=== PATIENT | male | born 1985 | race African-American/Black ===

== ENCOUNTER 2017-03-22 15:34 | Emergency (ER) | payer SELFPAY ==
[2017-03-22] MEDS ORDERED: Proparacaine 0.5% Ophth Soln 15 ML Bottle ONE (16:07)
[2017-03-22] MEDS ORDERED: Proparacaine 0.5% Ophth Soln 15 ML Bottle EYERT ONE (16:14)
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
[2017-03-22 16:36] VITALS: BP 140/68
== END 2017-03-22 16:30 | disposition home or self-care (01) ==
LOC: MW.ED 15:34
DX: S05.01XA Injury of conjunctiva and corneal abrasion without foreign body, right eye, initial encounter (principal); X58.XXXA Exposure to other specified factors, initial encounter
CPT/HCPCS: 99283

== ENCOUNTER 2017-09-27 15:53 | Emergency (ER) | payer SELFPAY ==
[2017-09-27 16:00] VITALS: BP 143/83
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
[2017-09-27 16:56] LABS: CHLORIDE,CL 105 mmol/L (98-110); SODIUM,NA 140 mmol/L (136-146)
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
== END 2017-09-27 19:13 | disposition home or self-care (01) ==
LOC: MW.ED 15:53
DX: S01.331A Puncture wound without foreign body of right ear, initial encounter (principal); S20.219A Contusion of unspecified front wall of thorax, initial encounter; V43.52XA Car driver injured in collision with other type car in traffic accident, initial encounter
CPT/HCPCS: 36415; 71010; 71010-26; 72040; 72040-26; 72170; 72170-26; 80053; 80305; 81001; 84484; 85025; 93005; 99285; 99285-25

== ENCOUNTER 2019-09-27 20:05 | Emergency (ER) | payer SELFPAY ==
[2019-09-27 20:21] VITALS: BP 111/65; PULSE 78
--- NOTE | 2019-09-27 20:22 | EDM.PDOC ---
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 He's had no fever or chills or other complaints and is yet secure a dental appointment. Review of systems: As per history of present illness and below otherwise all systems reviewed and negative. Past medical history: As per history of present illness and as reviewed below otherwise noncontributory. Surgical history: As per history of present illness and as reviewed below otherwise noncontributory. Social history: No reported history of drug or alcohol abuse. Family history: As per history of present illness and as reviewed below otherwise noncontributory. Physical exam: HEENT: Atraumatic, normocephalic, pupils reactive, negative for conjunctival pallor or scleral icterus, mucous membranes moist, throat clear, neck supple, nontender, trachea midline. Patient has some tenderness in the region of the right lower molar with minimal gingival edema. Lungs: Clear to auscultation, breath sounds equal bilaterally, chest nontender. Heart: S1S2, regular, negative for clicks, rubs, or JVD. Abdomen: Soft, nondistended, nontender. Negative for masses or hepatosplenomegaly. Negative for costovertebral tenderness. Pelvis: Stable nontender. Genitourinary: Deferred. Rectal: Deferred. Extremities: Atraumatic, negative for cords or calf pain. Neurovascular unremarkable. Right shoulder is no gross deformity neurovascular exam CMS is unremarkable there's no point tenderness Neuro: Awake, alert, oriented. Cranial nerves II through XII unremarkable. Cerebellum unremarkable. Motor and sensory unremarkable throughout. Exam nonfocal. Diagnostics: Deferred Therapeutics: None Impression: #1 right shoulder pain probable overuse syndrome #2 dentalgia rule out dental abscess Definitive disposition and diagnosis as appropriate pending reevaluation and review of above. - Related Data Allergies Allergy/AdvReac Type Severity Reaction Status Date / Time No Known Allergies Allergy Verified 09/27/17 15:57 Home Meds: Home Meds . [No Known Home Meds] 03/22/17 [History] Past Medical History - Past Health History Medical/Surgical History: Denies Medical/Surgical History Social & Family History - Family History Family Medical History: Noncontributory - Caffeine Use Caffeine Use: Reports: None Review of Systems - Review of Systems Review Of Systems: Comprehensive ROS is negative, except as noted in HPI. ED EXAM, GENERAL - Physical Exam Exam: See Below (See dictation) Departure - Departure Time of Disposition: 20:20 Disposition: Home, Self-Care 01 Condition: Good Clinical Impression: Shoulder pain, Dentalgia, Dental abscess - Discharge Information Referrals: PCP,None [Primary Care Provider] - Additional Instructions: The following information is given to patients seen in the emergency department who are being discharged to home. This information is to outline your options for follow-up care. We provide all patients seen in our emergency department with a follow-up referral. The need for follow-up, as well as the timing and circumstances, are variable depending upon the specifics of your emergency department visit. If you don't have a primary care physician on staff, we will provide you with a referral. We always advise you to contact your personal physician following an emergency department visit to inform them of the circumstance of the visit and for follow-up with them and/or the need for any referrals to a consulting specialist. The emergency department will also refer you to a specialist when appropriate. This referral assures that you have the opportunity for followup care with a specialist. All of these measure are taken in an effort to provide you with optimal care, which includes your followup. Under all circumstances we always encourage you to contact your private physician who remains a resource for coordinating your care. When calling for followup care, please make the office aware that this follow-up is from your recent emergency room visit. If for any reason you are refused follow-up, please contact the [facility] emergency department at and asked to speak to the emergency department charge nurse. [facility] - [facility] Professional Building [address] [place] [address], [address] [place] [address] Dental balls as directed Diclofenac Augmentin as prescribed follow-up dentist as discussed follow-up orthopedic surgery is needed as discussed return as needed as discussed
[2019-09-27] MEDS ORDERED: Benzocaine 20% Topical Spray UD MUCMEM ONE (20:35)
[2019-09-27] MEDS ORDERED: Lidocaine 2% Viscous Solution 15 ML Cup PO ONE (20:36)
== END 2019-09-27 20:55 | disposition home or self-care (01) ==
LOC: MW.ED 20:05
DX: K04.7 Periapical abscess without sinus (principal); M25.511 Pain in right shoulder
CPT/HCPCS: 99283; A9270